=== PATIENT | female | born 1955 | race Caucasian/White ===

== ENCOUNTER 2017-08-20 13:33 | Emergency (ER) | payer BC, OTHER ==
[2017-08-20 13:48] VITALS: RESP 18; TEMP 98.2; O2SAT 98
[2017-08-20] MEDS ORDERED: BUPIVACAINE HCL 0.25% MPF 10 ML SOL INFIL ONE ×2 (14:30→14:35)
[2017-08-20] MEDS ORDERED: LIDOCAINE HCL 1% 50 MG/5 ML SOL INFIL ONE (14:30)
[2017-08-20] MEDS ORDERED: LIDOCAINE HCL 1% MPF SOL ONE (14:34)
[2017-08-20 15:28] VITALS: BP 156/71; PULSE 53
== END 2017-08-20 15:20 | disposition home or self-care (01) ==
LOC: ED 13:33
DX: S52.501A Unspecified fracture of the lower end of right radius, initial encounter for closed fracture (principal); S52.601A Unspecified fracture of lower end of right ulna, initial encounter for closed fracture; W19.XXXA Unspecified fall, initial encounter; Y92.59 Other trade areas as the place of occurrence of the external cause
CPT/HCPCS: 99283 ×3; J2001; 73110